=== PATIENT | female | born 1965 | race Caucasian/White ===

== ENCOUNTER 2016-12-30 10:05 | Inpatient (IN) | payer MEDICARE, MEDICAID ==
[~2016-12-30] VITALS: Ht 193 cm; Wt 136.8 kg
[2016-12-30 10:39] LABS: BASOPHILS % (AUTO) 0.3 % (0.0-2.0); EOSINOPHILS % (AUTO) 0.6 % (1.0-6.0); HEMATOCRIT 32.2 % (36-46); HEMOGLOBIN 10.3 g/dL (12.0-16.0); LYMPHOCYTES # (AUTO) 0.8 K/uL (1.0-4.8); LYMPHOCYTES % (AUTO) 11.3 % (22.0-44.0); MEAN CORPUSCULAR HGB CONC 31.8 G/dL (31.0-37.0); MEAN CORPUSCULAR VOLUME 81 fL (80-100); MONOCYTES # (AUTO) 0.6 K/uL (0.1-1.0); MONOCYTES % (AUTO) 9.1 % (2.0-9.0); NEUTROPHILS # (AUTO) 5.4 K/uL (1.8-7.7); NEUTROPHILS % (AUTO) 78.7 % (40.0-70.0); PLATELET COUNT (AUTO) 409 K/uL (150-450); RED BLOOD CELL COUNT(AUTO) 3.95 MIL/uL (4.00-5.20); RED CELL DISTRIBUTION WIDTH 17.7 % (11.5-14.5); WHITE BLOOD COUNT (AUTO) 6.8 K/uL (4.5-11.0)
[2016-12-30] MEDS ORDERED: METF500T4 PO (10:44)
[2016-12-30] MEDS ORDERED: GABA-529 PO (10:45)
[2016-12-30 10:49] LABS: ANION GAP 8 mmol/L (8-16); CALCIUM, TOTAL 8.8 mg/dL (8.8-10.5); CARBON DIOXIDE 28 mmol/L (22-29); CHLORIDE 101 mmol/L (98-107); CREATININE 0.93 mg/dL (0.60-1.30); GLOMERULAR FILTR. RATE CALC > 60 mL/min (>60); POTASSIUM 4.5 mmol/L (3.5-5.1); SODIUM SERUM 137 mmol/L (136-145); UREA NITROGEN, BLOOD 13 mg/dL (7-18)
[2016-12-30 10:55] LABS: ALANINE AMINOTRANSFERASE 19 U/L (12-78); ALBUMIN 2.9 g/dL (3.4-5.0); ASPARTATE AMINOTRANSFERASE 13 U/L (15-37); BILIRUBIN,TOTAL 0.5 mg/dL (0.1-1.0); TOTAL PROTEIN, SERUM 8.3 g/dL (6.4-8.2)
[2016-12-30 10:59] LABS: RBC MORPHOLOGY COMMENT ABNORMAL RBC MORPH
[2016-12-30] MEDS ORDERED: VANCOMYCIN HCL 1 GM/D5% WATER 200 ML IV ONE ×2 (15:00→19:00)
[2016-12-30] MEDS ORDERED: PIPERACILLIN/TAZO 3.375 GM/D5W 50 ML IV ONE (15:00)
[2016-12-30] MEDS ORDERED: MAGNESIUM HYDROXIDE SUSPENSION 30 ML UDCUP PO PRN (15:30)
[2016-12-30] MEDS ORDERED: MORPHINE SULFATE 4 MG/ML SYRINGE IVP PRN (15:30)
[2016-12-30] MEDS ORDERED: ALBUTEROL SULFATE 2.5 MG/0.5 ML NEB SOLUTION NEB PRN (15:30)
[2016-12-30] MEDS ORDERED: HYDROCODONE/ACETAMINOPHEN 5-325 MG TABLET PO PRN ×2 (15:30)
[2016-12-30] MEDS ORDERED: ACETAMINOPHEN 325 MG TABLET PO PRN ×2 (15:30)
[2016-12-30] MEDS ORDERED: ONDANSETRON HCL 4 MG/2 ML VIAL IVP PRN ×2 (15:30)
[2016-12-30] MEDS ORDERED: ZOLPIDEM TARTRATE 5 MG TABLET PO PRN (15:30)
[2016-12-30] MEDS ORDERED: IPRATROPIUM BROMIDE 0.5 MG/2.5 ML NEB SOLUTION NEB PRN (15:30)
[2016-12-30] MEDS ORDERED: DEXTROSE 50%-WATER 25 GM/50 ML SYRINGE IVP PRN (15:30)
[2016-12-30] MEDS ORDERED: BISACODYL 10 MG RECTAL RECTAL SUPPOSITORY PR PRN (15:30)
[2016-12-30] MEDS ORDERED: 0.9% SODIUM CHLORIDE 10 ML SYRINGE IVP PRN (15:30)
[2016-12-30] MEDS: HEPARIN SODIUM,PORCINE 5,000 UNITS/ML VIAL SQ SCH ×3 (15:43→23:29)
[2016-12-30] MEDS ORDERED: VANCOMYCIN HCL 1 GM/D5% WATER 200 ML IV SCH (18:15)
[2016-12-30 19:05] VITALS: BP 124/66
[2016-12-30] MEDS ORDERED: SODIUM CHLORIDE 0.9% 500 ML IV ONE (19:22)
[2016-12-30] MEDS: DOCUSATE SODIUM 100 MG CAPSULE PO SCH (20:41)
[2016-12-30] MEDS: GABAPENTIN 100 MG CAPSULE PO SCH (20:41)
[2016-12-30] MEDS: PIPERACILLIN/TAZO 3.375 GM/D5W 50 ML IV SCH (21:40)
[2016-12-30] MEDS: INSULIN ASPART 100 UNITS/ML SQ PRN (22:04)
[2016-12-30 22:37] LABS: GLUCOSE COMMENT 1 Received Meds; GLUCOSE,POINT OF CARE 208 MG/DL (70-110)
[2016-12-30 23:24] VITALS: BP 100/58
[2016-12-31] MEDS: PIPERACILLIN/TAZO 3.375 GM/D5W 50 ML IV SCH ×4 (03:50→19:38)
[2016-12-31 04:58] VITALS: BP 118/68
[2016-12-31 06:27] LABS: BASOPHILS # (AUTO) 0.03 K/uL (0.00-0.20); BASOPHILS % (AUTO) 0.6 % (0.0-2.0); EOSINOPHILS # (AUTO) 0.13 K/uL (0.00-0.70); EOSINOPHILS % (AUTO) 2.59 % (1.0-6.0); HEMATOCRIT 25.8 % (36-46); HEMOGLOBIN 8.5 g/dL (12.0-16.0); LYMPHOCYTES # (AUTO) 1.3 K/uL (1.0-4.8); LYMPHOCYTES % (AUTO) 25.4 % (22.0-44.0); MEAN CORPUSCULAR HEMOGLOBIN 26.7 pg (26.0-34.0); MEAN CORPUSCULAR HGB CONC 32.8 G/dL (31.0-37.0); MEAN CORPUSCULAR VOLUME 81 fL (80-100); MONOCYTES # (AUTO) 0.6 K/uL (0.1-1.0); MONOCYTES % (AUTO) 12.4 % (2.0-9.0); PLATELET COUNT (AUTO) 301 K/uL (150-450); RED BLOOD CELL COUNT(AUTO) 3.17 MIL/uL (4.00-5.20); RED CELL DISTRIBUTION WIDTH 17.4 % (11.5-14.5)
[2016-12-31] MEDS: INSULIN ASPART 100 UNITS/ML SQ PRN ×4 (06:34→20:18)
[2016-12-31 06:49] LABS: ALANINE AMINOTRANSFERASE 12 U/L (12-78); ALBUMIN 2.3 g/dL (3.4-5.0); ANION GAP 8 mmol/L (8-16); ASPARTATE AMINOTRANSFERASE 10 U/L (15-37); BILIRUBIN,TOTAL 0.2 mg/dL (0.1-1.0); CALCIUM, TOTAL 8.3 mg/dL (8.8-10.5); CARBON DIOXIDE 27 mmol/L (22-29); CHLORIDE 103 mmol/L (98-107); CREATININE 0.75 mg/dL (0.60-1.30); GLOMERULAR FILTR. RATE CALC > 60 mL/min (>60); POTASSIUM 4.5 mmol/L (3.5-5.1); SODIUM SERUM 138 mmol/L (136-145); TOTAL PROTEIN, SERUM 6.6 g/dL (6.4-8.2); UREA NITROGEN, BLOOD 11 mg/dL (7-18)
[2016-12-31 07:17] LABS: GLUCOSE COMMENT 1 Received Meds; GLUCOSE,POINT OF CARE 228 MG/DL (70-110)
[2016-12-31] MEDS: HEPARIN SODIUM,PORCINE 5,000 UNITS/ML VIAL SQ SCH ×3 (08:00→23:52)
[2016-12-31 08:34] VITALS: BP 128/65
[2016-12-31] MEDS: VANCOMYCIN HCL 1.5 GM in DEXTROSE 5%-WATER 250 ML IV SCH ×2 (08:59→19:33)
[2016-12-31] MEDS: DOCUSATE SODIUM 100 MG CAPSULE PO SCH ×2 (09:00→19:40)
[2016-12-31] MEDS: GABAPENTIN 100 MG CAPSULE PO SCH ×2 (09:00→19:33)
[2016-12-31] MEDS: PANTOPRAZOLE SODIUM 40 MG/VIAL IVP SCH (09:00)
[2016-12-31 12:20] VITALS: BP 126/76
[2016-12-31 12:22] LABS: GLUCOSE COMMENT 1 Received Meds; GLUCOSE,POINT OF CARE 185 MG/DL (70-110)
[2016-12-31 15:41] VITALS: BP 124/62
[2016-12-31 17:47] LABS: GLUCOSE COMMENT 1 Received Meds; GLUCOSE,POINT OF CARE 203 MG/DL (70-110)
[2016-12-31 19:12] VITALS: BP 115/55
[2016-12-31] MEDS: SPIRONOLACTONE 50 MG TABLET PO SCH (19:33)
[2016-12-31 23:46] LABS: GLUCOSE,POINT OF CARE 172 MG/DL (70-110)
[2017-01-01 03:07] VITALS: BP 124/52
[2017-01-01] MEDS: PIPERACILLIN/TAZO 3.375 GM/D5W 50 ML IV SCH ×4 (04:23→20:05)
[2017-01-01] MEDS: INSULIN ASPART 100 UNITS/ML SQ PRN ×4 (05:36→20:11)
[2017-01-01 06:01] LABS: GLUCOSE,POINT OF CARE 194 MG/DL (70-110)
[2017-01-01 07:06] LABS: ANION GAP 9 mmol/L (8-16); CALCIUM, TOTAL 8.5 mg/dL (8.8-10.5); CARBON DIOXIDE 25 mmol/L (22-29); CHLORIDE 103 mmol/L (98-107); CREATININE 0.77 mg/dL (0.60-1.30); GLOMERULAR FILTR. RATE CALC > 60 mL/min (>60); POTASSIUM 4.2 mmol/L (3.5-5.1); SODIUM SERUM 137 mmol/L (136-145); UREA NITROGEN, BLOOD 10 mg/dL (7-18)
[2017-01-01] MEDS: VANCOMYCIN HCL 1.5 GM in DEXTROSE 5%-WATER 250 ML IV SCH ×2 (07:41→20:11)
[2017-01-01 08:00] VITALS: BP 134/78
[2017-01-01] MEDS: PANTOPRAZOLE SODIUM 40 MG/VIAL IVP SCH (08:17)
[2017-01-01] MEDS: ESTRADIOL 1 MG TABLET PO SCH (09:16)
[2017-01-01] MEDS: SPIRONOLACTONE 50 MG TABLET PO SCH ×2 (09:16→20:05)
[2017-01-01] MEDS: HEPARIN SODIUM,PORCINE 5,000 UNITS/ML VIAL SQ SCH ×2 (09:16→17:36)
[2017-01-01] MEDS: DOCUSATE SODIUM 100 MG CAPSULE PO SCH ×2 (09:16→20:05)
[2017-01-01] MEDS: GABAPENTIN 100 MG CAPSULE PO SCH ×2 (09:17→20:05)
[2017-01-01 11:37] LABS: GLUCOSE,POINT OF CARE 193 MG/DL (70-110)
[2017-01-01 12:03] VITALS: BP 131/77
[2017-01-01] MEDS: SILVER SULFADIAZINE 1% 25 GM CREAM TP SCH (17:36)
[2017-01-01] MEDS: NYSTATIN/TRIAMCINOLONE 15 GM CREAM TP SCH (17:36)
[2017-01-01 17:47] LABS: GLUCOSE,POINT OF CARE 264 MG/DL (70-110)
[2017-01-01 20:15] VITALS: BP 128/70
[2017-01-01 20:42] LABS: GLUCOSE COMMENT 1 Received Meds; GLUCOSE,POINT OF CARE 225 MG/DL (70-110)
[2017-01-01 23:23] VITALS: BP 135/76
[2017-01-02] VITALS (7 sets, daily range): BP systolic 120–136; BP diastolic 64–80
[2017-01-02] MEDS: HEPARIN SODIUM,PORCINE 5,000 UNITS/ML VIAL SQ SCH ×4 (00:05→23:10)
[2017-01-02] MEDS ORDERED: SODIUM CHLORIDE 0.9% 500 ML IV ONE (00:28)
[2017-01-02] MEDS: PIPERACILLIN/TAZO 3.375 GM/D5W 50 ML IV SCH ×4 (03:29→21:30)
[2017-01-02] MEDS: INSULIN ASPART 100 UNITS/ML SQ PRN ×4 (05:20→21:09)
[2017-01-02 06:17] LABS: GLUCOSE COMMENT 1 Received Meds; GLUCOSE,POINT OF CARE 206 MG/DL (70-110)
[2017-01-02 06:21] LABS: ANION GAP 7 mmol/L (8-16); CALCIUM, TOTAL 8.4 mg/dL (8.8-10.5); CARBON DIOXIDE 28 mmol/L (22-29); CHLORIDE 101 mmol/L (98-107); CREATININE 0.72 mg/dL (0.60-1.30); GLOMERULAR FILTR. RATE CALC > 60 mL/min (>60); POTASSIUM 4.2 mmol/L (3.5-5.1); SODIUM SERUM 136 mmol/L (136-145); UREA NITROGEN, BLOOD 9 mg/dL (7-18)
[2017-01-02] MEDS: PANTOPRAZOLE SODIUM 40 MG/VIAL IVP SCH (08:30)
[2017-01-02] MEDS: SPIRONOLACTONE 50 MG TABLET PO SCH ×2 (09:20→19:46)
[2017-01-02] MEDS: GABAPENTIN 100 MG CAPSULE PO SCH ×2 (09:21→19:45)
[2017-01-02] MEDS: SERTRALINE HCL 50 MG TABLET PO SCH (09:21)
[2017-01-02] MEDS: DOCUSATE SODIUM 100 MG CAPSULE PO SCH ×2 (09:21→19:45)
[2017-01-02] MEDS: ESTRADIOL 1 MG TABLET PO SCH (09:21)
[2017-01-02] MEDS: SILVER SULFADIAZINE 1% 25 GM CREAM TP SCH (09:22)
[2017-01-02] MEDS: NYSTATIN/TRIAMCINOLONE 15 GM CREAM TP SCH (09:22)
[2017-01-02] MEDS: VANCOMYCIN HCL 1.5 GM in DEXTROSE 5%-WATER 250 ML IV SCH ×2 (09:23→19:46)
[2017-01-02 12:36] LABS: GLUCOSE,POINT OF CARE 206 MG/DL (70-110)
[2017-01-02 19:52] LABS: GLUCOSE,POINT OF CARE 198 MG/DL (70-110)
[2017-01-02 20:30] LABS: BASOPHILS % (AUTO) 0.7 % (0.0-2.0); EOSINOPHILS % (AUTO) 1.9 % (1.0-6.0); HEMATOCRIT 28.6 % (36-46); HEMOGLOBIN 9.2 g/dL (12.0-16.0); LYMPHOCYTES # (AUTO) 1.1 K/uL (1.0-4.8); LYMPHOCYTES % (AUTO) 17.3 % (22.0-44.0); MEAN CORPUSCULAR HEMOGLOBIN 26.4 pg (26.0-34.0); MEAN CORPUSCULAR HGB CONC 32.3 G/dL (31.0-37.0); MEAN CORPUSCULAR VOLUME 82 fL (80-100); MONOCYTES # (AUTO) 0.6 K/uL (0.1-1.0); MONOCYTES % (AUTO) 8.9 % (2.0-9.0); NEUTROPHILS # (AUTO) 4.7 K/uL (1.8-7.7); NEUTROPHILS % (AUTO) 71.2 % (40.0-70.0); PLATELET COUNT (AUTO) 347 K/uL (150-450); RED CELL DISTRIBUTION WIDTH 16.8 % (11.5-14.5); WHITE BLOOD COUNT (AUTO) 6.5 K/uL (4.5-11.0)
[2017-01-02 20:40] LABS: ANION GAP 9 mmol/L (8-16); CALCIUM, TOTAL 8.8 mg/dL (8.8-10.5); CARBON DIOXIDE 27 mmol/L (22-29); CHLORIDE 100 mmol/L (98-107); CREATININE 0.76 mg/dL (0.60-1.30); GLOMERULAR FILTR. RATE CALC > 60 mL/min (>60); POTASSIUM 4.3 mmol/L (3.5-5.1); SODIUM SERUM 136 mmol/L (136-145); UREA NITROGEN, BLOOD 14 mg/dL (7-18)
[2017-01-02 20:47] LABS: ALANINE AMINOTRANSFERASE 16 U/L (12-78); ALBUMIN 2.6 g/dL (3.4-5.0); ASPARTATE AMINOTRANSFERASE 11 U/L (15-37); BILIRUBIN,TOTAL 0.3 mg/dL (0.1-1.0); TOTAL PROTEIN, SERUM 7.7 g/dL (6.4-8.2)
[2017-01-02 21:36] LABS: GLUCOSE,POINT OF CARE 175 MG/DL (70-110)
[2017-01-03 05:03] VITALS: BP 134/68
[2017-01-03] MEDS: INSULIN ASPART 100 UNITS/ML SQ PRN (05:39)
[2017-01-03] MEDS: PIPERACILLIN/TAZO 3.375 GM/D5W 50 ML IV SCH ×2 (05:58→10:37)
[2017-01-03 06:02] LABS: GLUCOSE,POINT OF CARE 158 MG/DL (70-110)
[2017-01-03] MEDS: HEPARIN SODIUM,PORCINE 5,000 UNITS/ML VIAL SQ SCH (08:00)
[2017-01-03 08:06] LABS: ANION GAP 8 mmol/L (8-16); CALCIUM, TOTAL 8.6 mg/dL (8.8-10.5); CARBON DIOXIDE 28 mmol/L (22-29); CHLORIDE 101 mmol/L (98-107); CREATININE 0.69 mg/dL (0.60-1.30); GLOMERULAR FILTR. RATE CALC > 60 mL/min (>60); SODIUM SERUM 137 mmol/L (136-145); UREA NITROGEN, BLOOD 10 mg/dL (7-18)
[2017-01-03] MEDS: PANTOPRAZOLE SODIUM 40 MG/VIAL IVP SCH (08:08)
[2017-01-03] MEDS: VANCOMYCIN HCL 1.5 GM in DEXTROSE 5%-WATER 250 ML IV SCH (08:08)
[2017-01-03 08:17] VITALS: BP 134/78
[2017-01-03] MEDS: ESTRADIOL 1 MG TABLET PO SCH (08:43)
[2017-01-03] MEDS: GABAPENTIN 100 MG CAPSULE PO SCH (08:43)
[2017-01-03] MEDS: DOCUSATE SODIUM 100 MG CAPSULE PO SCH (08:43)
[2017-01-03] MEDS: SERTRALINE HCL 50 MG TABLET PO SCH (08:43)
[2017-01-03] MEDS: SPIRONOLACTONE 50 MG TABLET PO SCH (08:43)
[2017-01-03] MEDS: NYSTATIN/TRIAMCINOLONE 15 GM CREAM TP SCH (08:44)
[2017-01-03] MEDS: SILVER SULFADIAZINE 1% 25 GM CREAM TP SCH (08:44)
[2017-01-03 11:09] VITALS: BP 111/71
[2017-01-03 15:16] VITALS: BP 123/74
== END 2017-01-03 16:50 | disposition home or self-care (01) | DRG 603 ==
LOC: EMS 10:08 → 6N 16:10
PROVIDERS: ADMIT Hospitalist; ATTEND Hospitalist
DX: L03.116 Cellulitis of left lower limb (principal); R45.851 Suicidal ideations; F33.2 Major depressive disorder, recurrent severe without psychotic features; L03.115 Cellulitis of right lower limb; G80.9 Cerebral palsy, unspecified; F17.210 Nicotine dependence, cigarettes, uncomplicated; E11.42 Type 2 diabetes mellitus with diabetic polyneuropathy; E66.9 Obesity, unspecified; B95.62 Methicillin resistant Staphylococcus aureus infection as the cause of diseases classified elsewhere; D64.9 Anemia, unspecified; F64.9 Gender identity disorder, unspecified; S80.812A Abrasion, left lower leg, initial encounter; S80.811A Abrasion, right lower leg, initial encounter; Z53.29 Procedure and treatment not carried out because of patient's decision for other reasons; S90.412A Abrasion, left great toe, initial encounter; X58.XXXA Exposure to other specified factors, initial encounter; E11.622 Type 2 diabetes mellitus with other skin ulcer; L98.499 Non-pressure chronic ulcer of skin of other sites with unspecified severity; Z91.14 Patient's other noncompliance with medication regimen; Z79.899 Other long term (current) drug therapy; Z79.4 Long term (current) use of insulin; Z68.36 Body mass index [BMI] 36.0-36.9, adult; Y93.89 Activity, other specified; Y92.89 Other specified places as the place of occurrence of the external cause; Y99.8 Other external cause status
CPT/HCPCS: 82962; 83605; 87040; 87070; 87147; 87205; 93971; 96365; 96366; 96368; 99285; C9113; G0480; J1644; J2543; J3370; J7040; J7060

== ENCOUNTER 2017-07-03 12:17 | Inpatient (IN) | payer MEDICARE, MEDICAID ==
[~2017-07-03] VITALS: Ht 182.9 cm; Wt 117.5 kg
[~2017-07-03 12:17] MED LIST: CEPH500 PO; CITA20TA9 PO; ESTR-95 PO; GABA-529 PO; MUPI1OIN4 NS; SPIR50 PO; SULF1TAB42 PO
[2017-07-03] MEDS ORDERED: METF500T4 PO (12:39)
[2017-07-03] MEDS ORDERED: LORazepam 2 MG TABLET PO ONE (14:30)
[2017-07-03] MEDS: HALOPERIDOL 5 MG TABLET PO ONE ×2 (14:37→14:38)
[2017-07-03 14:39] LABS: BASOPHILS % (AUTO) 0.5 % (0.0-2.0); EOSINOPHILS % (AUTO) 2.4 % (1.0-6.0); HEMATOCRIT 29.4 % (36-46); LYMPHOCYTES % (AUTO) 15.7 % (22.0-44.0); MEAN CORPUSCULAR HEMOGLOBIN 29.3 pg (26.0-34.0); MEAN CORPUSCULAR VOLUME 86 fL (80-100); MONOCYTES # (AUTO) 0.6 K/uL (0.1-1.0); MONOCYTES % (AUTO) 9.6 % (2.0-9.0); NEUTROPHILS # (AUTO) 4.6 K/uL (1.8-7.7); NEUTROPHILS % (AUTO) 71.8 % (40.0-70.0); PLATELET COUNT (AUTO) 327 K/uL (150-450); RED BLOOD CELL COUNT(AUTO) 3.41 MIL/uL (4.00-5.20); RED CELL DISTRIBUTION WIDTH 15.4 % (11.5-14.5)
[2017-07-03] MEDS ORDERED: LORazepam 2 MG TABLET PO PRN (14:45)
[2017-07-03] MEDS ORDERED: HALOPERIDOL 5 MG TABLET PO PRN (14:45)
[2017-07-03] MEDS ORDERED: ZOLPIDEM TARTRATE 10 MG TABLET PO PRN (14:45)
[2017-07-03 14:52] LABS: ANION GAP 9 mmol/L (8-16); CARBON DIOXIDE 25 mmol/L (22-29); CHLORIDE 102 mmol/L (98-107); CREATININE 1.29 mg/dL (0.60-1.30); GLOMERULAR FILTR. RATE CALC 44 mL/min (>60); GLUCOSE,RANDOM 182 mg/dL (70-110); POTASSIUM 4.9 mmol/L (3.5-5.1); SODIUM SERUM 136 mmol/L (136-145); UREA NITROGEN, BLOOD 22 mg/dL (7-18)
[2017-07-03 14:58] LABS: ALANINE AMINOTRANSFERASE 26 U/L (12-78); ALBUMIN 3.2 g/dL (3.4-5.0); ALKALINE PHOSPHATASE 75 U/L (46-116); ASPARTATE AMINOTRANSFERASE 15 U/L (15-37); BILIRUBIN,TOTAL 0.2 mg/dL (0.1-1.0)
[2017-07-03 15:10] LABS: TOTAL PROTEIN, SERUM 8.1 g/dL (6.4-8.2)
[2017-07-03 15:53] LABS: AMPHET/METH SCREEN,URINE NEGATIVE (NEGATIVE); BARBITURATE SCREEN, URINE NEGATIVE (NEGATIVE); BENZODIAZEPINES SCREEN,URINE NEGATIVE (NEGATIVE); CANNABINOID SCREEN,URINE NEGATIVE (NEGATIVE); COCAINE SCREEN,URINE NEGATIVE (NEGATIVE); METHADONE SCREEN, URINE NEGATIVE (NEGATIVE); OPIATE SCREEN,URINE NEGATIVE (NEGATIVE)
[2017-07-03 15:55] LABS: PHENCYCLIDINE SCREEN,URINE NEGATIVE (NEGATIVE)
[2017-07-03 17:37] LABS: GLUCOMETER DEV NAME(LOC) 3EI B; GLUCOSE,POINT OF CARE 169 MG/DL (70-110)
[2017-07-03] MEDS ORDERED: PERMETHRIN 5% 60 GM CREAM TP ONE ×2 (20:15→21:00)
[2017-07-03 20:51] VITALS: BP 144/87
[2017-07-03] MEDS: CEPHALEXIN MONOHYDRATE 500 MG CAPSULE PO SCH (20:58)
[2017-07-03 21:03] LABS: GLUCOMETER DEV NAME(LOC) 3EX 1; GLUCOSE,POINT OF CARE 163 MG/DL (70-110)
[2017-07-04 05:37] LABS: GLUCOMETER DEV NAME(LOC) 3EI B; GLUCOSE,POINT OF CARE 182 MG/DL (70-110)
[2017-07-04 06:11] VITALS: BP 121/72
[2017-07-04 09:00] VITALS: BP 146/88
[2017-07-04] MEDS ORDERED: GABAPENTIN 100 MG CAPSULE PO SCH (09:00)
[2017-07-04] MEDS: SULFAMETHOX/TRIMETH DS 800-160 MG/TABLET PO SCH ×2 (09:22→16:12)
[2017-07-04] MEDS: CEPHALEXIN MONOHYDRATE 500 MG CAPSULE PO SCH ×4 (09:22→20:59)
[2017-07-04] MEDS: ESTRADIOL 1 MG TABLET PO SCH (09:22)
[2017-07-04] MEDS: SPIRONOLACTONE 50 MG TABLET PO SCH ×2 (09:23→16:12)
[2017-07-04] MEDS: CITALOPRAM HYDROBROMIDE 20 MG TABLET PO SCH (11:13)
[2017-07-04 11:38] LABS: GLUCOMETER DEV NAME(LOC) 3EX 1; GLUCOSE,POINT OF CARE 125 MG/DL (70-110)
[2017-07-04] MEDS ORDERED: MINERAL OIL/PETROLATUM 120 GM CREAM TP SCH (13:30)
[2017-07-04] MEDS: GABAPENTIN 100 MG CAPSULE PO SCH ×2 (14:01→16:12)
[2017-07-04 16:23] VITALS: BP 153/100
[2017-07-04] MEDS ORDERED: ACETAMINOPHEN 325 MG TABLET PO PRN (16:30)
[2017-07-04] MEDS ORDERED: IBUPROFEN 400 MG TABLET PO PRN (16:30)
[2017-07-04 16:37] LABS: GLUCOMETER DEV NAME(LOC) 3EX 1; GLUCOSE,POINT OF CARE 157 MG/DL (70-110)
[2017-07-04 19:07] VITALS: BP 138/76
[2017-07-04] MEDS: LISINOPRIL 10 MG TABLET PO SCH (19:07)
[2017-07-04 21:17] LABS: GLUCOMETER DEV NAME(LOC) 3EX 1; GLUCOSE,POINT OF CARE 139 MG/DL (70-110)
[2017-07-05 04:52] VITALS: BP 131/66
[2017-07-05 06:56] LABS: CHOL/HDL RATIO 4.4 (3.9-5.7)
[2017-07-05] MEDS: SPIRONOLACTONE 50 MG TABLET PO SCH ×2 (08:57→16:37)
[2017-07-05] MEDS: CEPHALEXIN MONOHYDRATE 500 MG CAPSULE PO SCH ×4 (08:58→20:47)
[2017-07-05] MEDS: ESTRADIOL 1 MG TABLET PO SCH (08:58)
[2017-07-05] MEDS: GABAPENTIN 100 MG CAPSULE PO SCH ×3 (08:58→16:37)
[2017-07-05] MEDS: SULFAMETHOX/TRIMETH DS 800-160 MG/TABLET PO SCH ×2 (08:58→16:38)
[2017-07-05] MEDS: LISINOPRIL 10 MG TABLET PO SCH (09:00)
[2017-07-05] MEDS: CITALOPRAM HYDROBROMIDE 20 MG TABLET PO SCH (10:01)
[2017-07-05 11:34] LABS: GLUCOMETER DEV NAME(LOC) 3EX 1; GLUCOSE,POINT OF CARE 135 MG/DL (70-110)
[2017-07-05] MEDS: MUPIROCIN CALCIUM 2% 22 GM OINTMENT NASAL SCH (16:38)
[2017-07-05 16:44] LABS: GLUCOMETER DEV NAME(LOC) 3EX 1; GLUCOSE,POINT OF CARE 132 MG/DL (70-110)
[2017-07-05 20:44] VITALS: BP 135/71
[2017-07-05 21:18] LABS: GLUCOMETER DEV NAME(LOC) 3EX 1; GLUCOSE,POINT OF CARE 170 MG/DL (70-110)
[2017-07-06 05:39] LABS: GLUCOMETER DEV NAME(LOC) 3EI B; GLUCOSE,POINT OF CARE 138 MG/DL (70-110)
[2017-07-06] MEDS: MetFORMIN HCL 500 MG TABLET PO SCH (06:52)
[2017-07-06] MEDS: SPIRONOLACTONE 50 MG TABLET PO SCH ×2 (08:21→16:51)
[2017-07-06] MEDS: ESTRADIOL 1 MG TABLET PO SCH (08:21)
[2017-07-06] MEDS: SULFAMETHOX/TRIMETH DS 800-160 MG/TABLET PO SCH ×2 (08:21→16:51)
[2017-07-06] MEDS: CITALOPRAM HYDROBROMIDE 20 MG TABLET PO SCH (08:21)
[2017-07-06] MEDS: LISINOPRIL 10 MG TABLET PO SCH (08:22)
[2017-07-06] MEDS: CEPHALEXIN MONOHYDRATE 500 MG CAPSULE PO SCH ×4 (08:22→20:16)
[2017-07-06] MEDS: GABAPENTIN 100 MG CAPSULE PO SCH ×3 (08:22→16:51)
[2017-07-06] MEDS: MUPIROCIN CALCIUM 2% 22 GM OINTMENT NASAL SCH ×2 (09:00→16:50)
[2017-07-06 11:28] LABS: GLUCOMETER DEV NAME(LOC) 3EX 1; GLUCOSE,POINT OF CARE 156 MG/DL (70-110)
[2017-07-06 16:30] VITALS: BP 100/66
[2017-07-06 17:42] LABS: GLUCOMETER DEV NAME(LOC) 3EX 1; GLUCOSE,POINT OF CARE 155 MG/DL (70-110)
[2017-07-06 20:23] LABS: GLUCOMETER DEV NAME(LOC) 3EX 1; GLUCOSE,POINT OF CARE 142 MG/DL (70-110)
[2017-07-07 03:41] VITALS: BP 101/59
[2017-07-07 06:28] LABS: GLUCOMETER DEV NAME(LOC) 3EI B; GLUCOSE,POINT OF CARE 129 MG/DL (70-110)
[2017-07-07] MEDS: MetFORMIN HCL 500 MG TABLET PO SCH (07:09)
[2017-07-07 07:31] LABS: CALCIUM, TOTAL 8.2 mg/dL (8.8-10.5); CREATININE 1.72 mg/dL (0.60-1.30); POTASSIUM 5.3 mmol/L (3.5-5.1)
[2017-07-07 08:12] VITALS: BP 112/60
[2017-07-07] MEDS: MUPIROCIN CALCIUM 2% 22 GM OINTMENT NASAL SCH ×2 (08:51→17:29)
[2017-07-07] MEDS: LISINOPRIL 10 MG TABLET PO SCH (08:52)
[2017-07-07] MEDS: SPIRONOLACTONE 50 MG TABLET PO SCH ×2 (08:52→17:29)
[2017-07-07] MEDS: GABAPENTIN 100 MG CAPSULE PO SCH ×3 (08:52→17:29)
[2017-07-07] MEDS: SULFAMETHOX/TRIMETH DS 800-160 MG/TABLET PO SCH ×2 (08:52→17:29)
[2017-07-07] MEDS: CEPHALEXIN MONOHYDRATE 500 MG CAPSULE PO SCH ×4 (08:52→20:46)
[2017-07-07] MEDS: CITALOPRAM HYDROBROMIDE 20 MG TABLET PO SCH (08:53)
[2017-07-07] MEDS: ESTRADIOL 1 MG TABLET PO SCH (08:53)
[2017-07-07 11:38] LABS: GLUCOMETER DEV NAME(LOC) 3EX 1; GLUCOSE,POINT OF CARE 136 MG/DL (70-110)
[2017-07-07] MEDS: LOPERAMIDE HCL 2 MG CAPSULE PO PRN ×2 (12:35→17:29)
[2017-07-07] MEDS ORDERED: MINERAL OIL/PETROLATUM 120 GM CREAM TP PRN (13:15)
[2017-07-07 17:42] LABS: GLUCOMETER DEV NAME(LOC) 3EX 1; GLUCOSE,POINT OF CARE 134 MG/DL (70-110)
[2017-07-07 17:45] VITALS: BP 153/70
[2017-07-07 20:57] LABS: GLUCOMETER DEV NAME(LOC) 3EX 1; GLUCOSE,POINT OF CARE 126 MG/DL (70-110)
[2017-07-08 05:48] LABS: GLUCOMETER DEV NAME(LOC) 3EI B; GLUCOSE,POINT OF CARE 105 MG/DL (70-110)
[2017-07-08] MEDS: MetFORMIN HCL 500 MG TABLET PO SCH (06:59)
[2017-07-08 07:30] LABS: BASOPHILS % (AUTO) 0.7 % (0.0-2.0); EOSINOPHILS % (AUTO) 2.6 % (1.0-6.0); HEMATOCRIT 24.7 % (36-46); HEMOGLOBIN 8.4 g/dL (12.0-16.0); LYMPHOCYTES # (AUTO) 1.2 K/uL (1.0-4.8); LYMPHOCYTES % (AUTO) 15.6 % (22.0-44.0); MEAN CORPUSCULAR HEMOGLOBIN 29.6 pg (26.0-34.0); MEAN CORPUSCULAR VOLUME 87 fL (80-100); MONOCYTES # (AUTO) 0.8 K/uL (0.1-1.0); NEUTROPHILS # (AUTO) 5.7 K/uL (1.8-7.7); NEUTROPHILS % (AUTO) 71.1 % (40.0-70.0); PLATELET COUNT (AUTO) 269 K/uL (150-450); RED BLOOD CELL COUNT(AUTO) 2.84 MIL/uL (4.00-5.20); RED CELL DISTRIBUTION WIDTH 15.3 % (11.5-14.5)
[2017-07-08 09:00] VITALS: BP 102/61
[2017-07-08] MEDS ORDERED: MINERAL OIL/PETROLATUM 120 GM CREAM TP SCH (09:00)
[2017-07-08] MEDS: MUPIROCIN CALCIUM 2% 22 GM OINTMENT NASAL SCH ×2 (09:36→17:31)
[2017-07-08] MEDS: SPIRONOLACTONE 50 MG TABLET PO SCH ×2 (09:37→17:31)
[2017-07-08] MEDS: CEPHALEXIN MONOHYDRATE 500 MG CAPSULE PO SCH ×4 (09:37→20:12)
[2017-07-08] MEDS: LISINOPRIL 10 MG TABLET PO SCH (09:37)
[2017-07-08] MEDS: ESTRADIOL 1 MG TABLET PO SCH (09:38)
[2017-07-08] MEDS: CITALOPRAM HYDROBROMIDE 20 MG TABLET PO SCH (09:39)
[2017-07-08] MEDS: SULFAMETHOX/TRIMETH DS 800-160 MG/TABLET PO SCH ×2 (09:39→17:31)
[2017-07-08] MEDS: GABAPENTIN 100 MG CAPSULE PO SCH ×3 (09:40→17:31)
[2017-07-08 11:48] LABS: GLUCOMETER DEV NAME(LOC) 3EX 1; GLUCOSE,POINT OF CARE 108 MG/DL (70-110)
[2017-07-08 17:42] LABS: GLUCOMETER DEV NAME(LOC) 3EX 1; GLUCOSE,POINT OF CARE 87 MG/DL (70-110)
[2017-07-08] MEDS ORDERED: ALBUTEROL SULFATE HFA 90 MCG/PUFF 8 GM INHALER IH SCH (18:00)
[2017-07-08] MEDS ORDERED: SODIUM POLYSTYRENE SULFONATE 15 GM/60 ML SUSPENSION BOTTLE PO ONE (18:00)
[2017-07-08] MEDS ORDERED: SODIUM CHLORIDE 0.9% 1,000 ML IV ONE (19:00)
[2017-07-08 20:43] LABS: GLUCOMETER DEV NAME(LOC) 3EX 1; GLUCOSE,POINT OF CARE 113 MG/DL (70-110)
== END 2017-07-08 20:45 | disposition short-term general hospital (02) | DRG 885 ==
LOC: EMS 12:19 → 3EX 15:38
DX: F31.31 Bipolar disorder, current episode depressed, mild (principal); E11.42 Type 2 diabetes mellitus with diabetic polyneuropathy; E11.621 Type 2 diabetes mellitus with foot ulcer; L03.115 Cellulitis of right lower limb; E87.5 Hyperkalemia; R45.851 Suicidal ideations; L03.116 Cellulitis of left lower limb; F25.1 Schizoaffective disorder, depressive type; L97.529 Non-pressure chronic ulcer of other part of left foot with unspecified severity; F17.200 Nicotine dependence, unspecified, uncomplicated; F64.9 Gender identity disorder, unspecified; I10 Essential (primary) hypertension; Z59.9 Problem related to housing and economic circumstances, unspecified; Z63.8 Other specified problems related to primary support group; Z91.5 Personal history of self-harm; Z91.14 Patient's other noncompliance with medication regimen; Z79.84 Long term (current) use of oral hypoglycemic drugs; Z79.899 Other long term (current) drug therapy
CPT/HCPCS: 82962; 83036; 84132; 87070; 87081; 87205; 93005; 97161; 97165; 97535; 99285; G0480; J3535

== ENCOUNTER 2017-07-08 20:50 | Inpatient (IN) | payer MEDICARE, MEDICAID ==
[~2017-07-08 20:50] MED LIST changes: -CEPH500 PO; +METF500T4 PO; -MUPI1OIN4 NS; -SULF1TAB42 PO
[2017-07-08 22:09] VITALS: BP 108/57
[2017-07-08] MEDS ORDERED: SODIUM POLYSTYRENE SULFONATE 15 GM/60 ML SUSPENSION BOTTLE PO ONE (22:30)
[2017-07-08] MEDS ORDERED: SODIUM CHLORIDE 0.9% 1,000 ML IV SCH (23:15)
[2017-07-09] MEDS ORDERED: ALBUTEROL SULFATE 2.5 MG/0.5 ML NEB SOLUTION NEB ONE ×3 (00:45→21:00)
[2017-07-09] MEDS ORDERED: IBUPROFEN 400 MG TABLET PO PRN (01:00)
[2017-07-09] MEDS ORDERED: MINERAL OIL/PETROLATUM 120 GM CREAM TP PRN (01:00)
[2017-07-09] MEDS ORDERED: ACETAMINOPHEN 325 MG TABLET PO PRN ×2 (01:00→10:45)
[2017-07-09] MEDS ORDERED: LOPERAMIDE HCL 2 MG CAPSULE PO PRN (01:00)
[2017-07-09] MEDS ORDERED: ALBUTEROL SULFATE HFA 90 MCG/PUFF 8 GM INHALER IH SCH ×2 (01:00)
[2017-07-09 01:02] VITALS: BP 114/56
[2017-07-09] MEDS ORDERED: 0.9% SODIUM CHLORIDE 5 ML NEB SOLUTION NEB ONE ×3 (01:04→22:33)
[2017-07-09] MEDS ORDERED: ALBUTEROL SULFATE HFA 90 MCG/PUFF 8 GM INHALER IH PRN ×2 (01:45→07:00)
[2017-07-09 02:01] LABS: CALCIUM, TOTAL 8.5 mg/dL (8.8-10.5); CREATININE 1.64 mg/dL (0.60-1.30)
[2017-07-09 02:02] LABS: POTASSIUM 6.2 mmol/L (3.5-5.1)
[2017-07-09] MEDS ORDERED: DEXTROSE 50%-WATER 25 GM/50 ML SYRINGE IVP ONE ×4 (02:15→23:30)
[2017-07-09] MEDS ORDERED: INSULIN REGULAR, HUMAN 100 UNITS/ML IVP ONE ×3 (02:15→23:30)
[2017-07-09] MEDS ORDERED: INFLUENZA VIRUS VACCINE QVS 2017-18 (3YR+)/PF 60 MCG/0.5 ML SYRINGE IM ONE (04:45)
[2017-07-09 04:49] LABS: C.DIFF GDH ANTIGEN, Stool Positive (Negative); C.DIFF TOXINS A&B, Stool Negative (Negative)
[2017-07-09 06:09] LABS: GLUCOMETER DEV NAME(LOC) 5S 2N; GLUCOSE,POINT OF CARE 111 MG/DL (70-110)
[2017-07-09] MEDS ORDERED: PNEUMOCOCCAL VACCINE POLYVALENT 0.5 ML VIAL [PPSV23] IM ONE (06:15)
[2017-07-09 06:30] VITALS: BP 102/65
[2017-07-09] MEDS ORDERED: MetFORMIN HCL 500 MG TABLET PO SCH (08:00)
[2017-07-09 08:04] LABS: ALBUMIN 2.9 g/dL (3.4-5.0); BILIRUBIN,TOTAL 0.2 mg/dL (0.1-1.0); CALCIUM, TOTAL 8.4 mg/dL (8.8-10.5); CREATININE 1.64 mg/dL (0.60-1.30); POTASSIUM 5.8 mmol/L (3.5-5.1); TOTAL PROTEIN, SERUM 7.4 g/dL (6.4-8.2)
[2017-07-09] MEDS: MUPIROCIN CALCIUM 2% 22 GM OINTMENT NASAL SCH ×2 (08:26→21:00)
[2017-07-09] MEDS: ESTRADIOL 1 MG TABLET PO SCH (08:26)
[2017-07-09] MEDS: MINERAL OIL/PETROLATUM 120 GM CREAM TP SCH (08:27)
[2017-07-09] MEDS: CEPHALEXIN MONOHYDRATE 500 MG CAPSULE PO SCH ×4 (08:27→22:30)
[2017-07-09] MEDS: GABAPENTIN 100 MG CAPSULE PO SCH ×3 (08:27→22:30)
[2017-07-09] MEDS ORDERED: LISINOPRIL 10 MG TABLET PO SCH (09:00)
[2017-07-09] MEDS ORDERED: SODIUM POLYSTYRENE SULFONATE 15 GM/60 ML SUSPENSION BOTTLE PO ONE ×2 (10:45→19:15)
[2017-07-09] MEDS ORDERED: SODIUM CHLORIDE 0.9% 1,000 ML IV ONE (10:45)
[2017-07-09] MEDS ORDERED: MAGNESIUM HYDROXIDE SUSPENSION 30 ML UDCUP PO PRN (10:45)
[2017-07-09] MEDS ORDERED: ONDANSETRON HCL 4 MG/2 ML VIAL IVP PRN (10:45)
[2017-07-09] MEDS ORDERED: HYDROCODONE/ACETAMINOPHEN 5-325 MG TABLET PO PRN (10:45)
[2017-07-09] MEDS ORDERED: BISACODYL 10 MG RECTAL RECTAL SUPPOSITORY PR PRN (10:45)
[2017-07-09] MEDS ORDERED: MORPHINE SULFATE 2 MG/ML SYRINGE IVP PRN (10:45)
[2017-07-09] MEDS ORDERED: ZOLPIDEM TARTRATE 5 MG TABLET PO PRN (10:45)
[2017-07-09] MEDS ORDERED: DEXTROSE 50%-WATER 25 GM/50 ML SYRINGE IVP PRN (11:00)
[2017-07-09 11:45] VITALS: BP 90/67
[2017-07-09 14:28] LABS: GLUCOMETER DEV NAME(LOC) 5S 2N; GLUCOSE,POINT OF CARE 128 MG/DL (70-110)
[2017-07-09] MEDS: HEPARIN SODIUM,PORCINE 5,000 UNITS/ML VIAL SQ SCH (16:00)
[2017-07-09 16:06] VITALS: BP 112/58
[2017-07-09 18:49] LABS: ANION GAP 7 mmol/L (8-16); CALCIUM, TOTAL 8.6 mg/dL (8.8-10.5); CARBON DIOXIDE 20 mmol/L (22-29); CHLORIDE 106 mmol/L (98-107); CREATININE 1.51 mg/dL (0.60-1.30); GLOMERULAR FILTR. RATE CALC 36 mL/min (>60); GLUCOSE,RANDOM 101 mg/dL (70-110); SODIUM SERUM 133 mmol/L (136-145); UREA NITROGEN, BLOOD 37 mg/dL (7-18)
[2017-07-09 18:55] LABS: POTASSIUM 6.7 mmol/L (3.5-5.1)
[2017-07-09] MEDS ORDERED: CALCIUM GLUCONATE 100 MG/ML 10 ML IVP ONE ×2 (19:15→23:30)
[2017-07-09 19:42] VITALS: BP 108/55
[2017-07-09] MEDS: SODIUM BICARBONATE 75 MEQ in SODIUM CHLORIDE 0.45% 1,000 ML IV SCH (20:17)
[2017-07-09 20:49] LABS: APPEARANCE,URINE CLEAR (CLEAR); BILIRUBIN,URINE NEGATIVE (NEGATIVE); GLUCOSE, URINE (UA) NEGATIVE (NEGATIVE); KETONES,URINE NEGATIVE (NEGATIVE); LEUKOCYTE ESTERASE ,URINE MODERATE (NEGATIVE); NITRATE,URINE NEGATIVE (NEGATIVE); OCCULT BLOOD,URINE TRACE (NEGATIVE); PROTEIN,URINE NEGATIVE (NEGATIVE); UROBILINOGEN,URINE 0.2 mg/dL (<=1.0)
[2017-07-09] MEDS: DOCUSATE SODIUM 100 MG CAPSULE PO SCH (21:00)
[2017-07-09 21:28] LABS: CREATINE KINASE MB 1.1 ng/mL (0-5); CREATINE KINASE, TOTAL 46 U/L (26-192)
[2017-07-09 21:30] LABS: BACTERIA,URINE Few /HPF (None Seen); RBC,URINE 0-2 /HPF (0-2); SQUAMOUS EPITHELIAL CELL,UR Rare /LPF (None Seen)
[2017-07-09 23:13] LABS: CALCIUM, TOTAL 8.5 mg/dL (8.8-10.5); CREATININE 1.52 mg/dL (0.60-1.30)
[2017-07-09 23:16] LABS: POTASSIUM 6.1 mmol/L (3.5-5.1)
[2017-07-10 03:57] LABS: GLUCOMETER DEV NAME(LOC) 5S 2N; GLUCOSE,POINT OF CARE 102 MG/DL (70-110)
[2017-07-10 03:58] LABS: GLUCOMETER DEV NAME(LOC) 5S 2N; GLUCOSE,POINT OF CARE 137 MG/DL (70-110)
[2017-07-10] MEDS: SODIUM BICARBONATE 75 MEQ in SODIUM CHLORIDE 0.45% 1,000 ML IV SCH ×2 (07:01→15:31)
[2017-07-10 07:42] VITALS: BP 101/51
[2017-07-10 07:55] LABS: ALBUMIN 2.9 g/dL (3.4-5.0); BILIRUBIN,TOTAL 0.2 mg/dL (0.1-1.0); CALCIUM, TOTAL 8.6 mg/dL (8.8-10.5); CREATININE 1.46 mg/dL (0.60-1.30); MAGNESIUM 2.1 mg/dL (1.80-2.40); PHOSPHORUS 4.9 mg/dL (2.5-4.9); TOTAL PROTEIN, SERUM 7.5 g/dL (6.4-8.2)
[2017-07-10] MEDS: HEPARIN SODIUM,PORCINE 5,000 UNITS/ML VIAL SQ SCH ×2 (08:00)
[2017-07-10 08:05] LABS: POTASSIUM 6.8 mmol/L (3.5-5.1)
[2017-07-10] MEDS ORDERED: DEXTROSE 50%-WATER 25 GM/50 ML SYRINGE IVP ONE ×2 (08:15→19:45)
[2017-07-10] MEDS ORDERED: INSULIN REGULAR, HUMAN 100 UNITS/ML IVP ONE ×2 (08:15→19:45)
[2017-07-10] MEDS ORDERED: SODIUM POLYSTYRENE SULFONATE 15 GM/60 ML SUSPENSION BOTTLE PO ONE (08:15)
[2017-07-10] MEDS ORDERED: CALCIUM GLUCONATE 100 MG/ML 10 ML IVP ONE ×2 (08:15→19:45)
[2017-07-10] MEDS: PANTOPRAZOLE SODIUM 40 MG DR TABLET PO SCH (09:00)
[2017-07-10] MEDS: DOCUSATE SODIUM 100 MG CAPSULE PO SCH ×2 (09:00→20:20)
[2017-07-10] MEDS: MULTIVITAMINS WITH MINERALS, THERAPEUTIC TABLET PO SCH (09:00)
[2017-07-10] MEDS: ESTRADIOL 1 MG TABLET PO SCH (09:40)
[2017-07-10] MEDS: MUPIROCIN CALCIUM 2% 22 GM OINTMENT NASAL SCH ×2 (09:40→20:20)
[2017-07-10] MEDS: CEPHALEXIN MONOHYDRATE 500 MG CAPSULE PO SCH ×4 (09:41→20:15)
[2017-07-10] MEDS: GABAPENTIN 100 MG CAPSULE PO SCH ×3 (09:41→20:15)
[2017-07-10] MEDS: MINERAL OIL/PETROLATUM 120 GM CREAM TP SCH (09:42)
[2017-07-10 11:41] VITALS: BP 120/59
[2017-07-10] MEDS ORDERED: SODIUM POLYSTYRENE SULFONATE 15 GM/60 ML SUSPENSION BOTTLE PR ONE ×2 (12:30→19:45)
[2017-07-10] MEDS: CefTRIAXone 1 GM/DEXTROSE 50 ML IV SCH (15:31)
[2017-07-10 15:55] VITALS: BP 134/78
[2017-07-10 17:03] LABS: GLUCOMETER DEV NAME(LOC) 5N 1M; GLUCOSE,POINT OF CARE 109 MG/DL (70-110)
[2017-07-10 19:26] VITALS: BP 128/65
[2017-07-10] MEDS ORDERED: ALBUTEROL SULFATE 2.5 MG/0.5 ML NEB SOLUTION NEB ONE (19:45)
[2017-07-10 19:49] LABS: CREATININE,URINE RANDOM 12.9 mg/dL (30.0-125.0)
[2017-07-10] MEDS ORDERED: 0.9% SODIUM CHLORIDE 5 ML NEB SOLUTION NEB ONE (22:37)
[2017-07-11] VITALS (7 sets, daily range): BP systolic 110–142; BP diastolic 56–79
[2017-07-11] MEDS: SODIUM BICARBONATE 75 MEQ in SODIUM CHLORIDE 0.45% 1,000 ML IV SCH (01:56)
[2017-07-11 02:58] LABS: GLUCOMETER DEV NAME(LOC) 5S 1L; GLUCOSE,POINT OF CARE 131 MG/DL (70-110)
[2017-07-11 02:58] LABS: GLUCOMETER DEV NAME(LOC) 5S 1L; GLUCOSE,POINT OF CARE 130 MG/DL (70-110)
[2017-07-11 06:52] LABS: GLUCOMETER DEV NAME(LOC) 5S 1L; GLUCOSE,POINT OF CARE 107 MG/DL (70-110)
[2017-07-11 07:03] LABS: ALBUMIN 2.8 g/dL (3.4-5.0); BILIRUBIN,TOTAL 0.2 mg/dL (0.1-1.0); CALCIUM, TOTAL 8.7 mg/dL (8.8-10.5); CREATININE 1.23 mg/dL (0.60-1.30); POTASSIUM 5.7 mmol/L (3.5-5.1); TOTAL PROTEIN, SERUM 7.8 g/dL (6.4-8.2)
[2017-07-11 07:14] LABS: MAGNESIUM 1.7 mg/dL (1.80-2.40); PHOSPHORUS 4.2 mg/dL (2.5-4.9)
[2017-07-11] MEDS: MULTIVITAMINS WITH MINERALS, THERAPEUTIC TABLET PO SCH (08:25)
[2017-07-11] MEDS: CEPHALEXIN MONOHYDRATE 500 MG CAPSULE PO SCH (08:25)
[2017-07-11] MEDS: GABAPENTIN 100 MG CAPSULE PO SCH (08:25)
[2017-07-11] MEDS: ESTRADIOL 1 MG TABLET PO SCH (08:26)
[2017-07-11] MEDS: MINERAL OIL/PETROLATUM 120 GM CREAM TP SCH (08:26)
[2017-07-11] MEDS: MUPIROCIN CALCIUM 2% 22 GM OINTMENT NASAL SCH ×2 (08:26→20:40)
[2017-07-11] MEDS: PANTOPRAZOLE SODIUM 40 MG DR TABLET PO SCH (08:32)
[2017-07-11] MEDS: DOCUSATE SODIUM 100 MG CAPSULE PO SCH ×2 (08:32→20:40)
[2017-07-11] MEDS ORDERED: MAGNESIUM SULFATE 3 GM in DEXTROSE 5%-WATER 100 ML IV ONE (11:00)
[2017-07-11] MEDS ORDERED: SODIUM POLYSTYRENE SULFONATE 15 GM/60 ML SUSPENSION BOTTLE PO ONE (12:00)
[2017-07-11] MEDS: CefTRIAXone 1 GM/DEXTROSE 50 ML IV SCH (15:55)
[2017-07-11 19:02] LABS: GLUCOMETER DEV NAME(LOC) 5S 2N; GLUCOSE,POINT OF CARE 140 MG/DL (70-110)
[2017-07-11] MEDS: INSULIN ASPART 100 UNITS/ML SQ PRN (20:38)
[2017-07-12 05:15] VITALS: BP 131/72
[2017-07-12 07:11] LABS: BILIRUBIN,TOTAL 0.2 mg/dL (0.1-1.0); CALCIUM, TOTAL 8.8 mg/dL (8.8-10.5); CREATININE 1.18 mg/dL (0.60-1.30); MAGNESIUM 2.1 mg/dL (1.80-2.40); PHOSPHORUS 4.6 mg/dL (2.5-4.9); POTASSIUM 5.3 mmol/L (3.5-5.1); TOTAL PROTEIN, SERUM 8.2 g/dL (6.4-8.2)
[2017-07-12] MEDS: MULTIVITAMINS WITH MINERALS, THERAPEUTIC TABLET PO SCH (09:00)
[2017-07-12] MEDS: MUPIROCIN CALCIUM 2% 22 GM OINTMENT NASAL SCH ×2 (09:00→20:56)
[2017-07-12] MEDS: DOCUSATE SODIUM 100 MG CAPSULE PO SCH ×2 (09:00→20:57)
[2017-07-12] MEDS: PANTOPRAZOLE SODIUM 40 MG DR TABLET PO SCH (09:00)
[2017-07-12] MEDS: MINERAL OIL/PETROLATUM 120 GM CREAM TP SCH (09:22)
[2017-07-12] MEDS: CITALOPRAM HYDROBROMIDE 20 MG TABLET PO SCH (09:23)
[2017-07-12] MEDS: ESTRADIOL 1 MG TABLET PO SCH (09:23)
[2017-07-12 11:22] VITALS: BP 153/71
[2017-07-12 15:16] VITALS: BP 135/63
[2017-07-12 20:29] VITALS: BP 148/73
[2017-07-12 23:55] VITALS: BP 140/75
[2017-07-13 07:56] VITALS: BP 135/76
[2017-07-13 08:04] LABS: ALBUMIN 3.2 g/dL (3.4-5.0); BILIRUBIN,TOTAL 0.2 mg/dL (0.1-1.0); CALCIUM, TOTAL 8.9 mg/dL (8.8-10.5); CREATININE 1.19 mg/dL (0.60-1.30); POTASSIUM 5.1 mmol/L (3.5-5.1); TOTAL PROTEIN, SERUM 8.6 g/dL (6.4-8.2)
[2017-07-13] MEDS: PANTOPRAZOLE SODIUM 40 MG DR TABLET PO SCH (08:36)
[2017-07-13] MEDS: DOCUSATE SODIUM 100 MG CAPSULE PO SCH (08:36)
[2017-07-13] MEDS: MUPIROCIN CALCIUM 2% 22 GM OINTMENT NASAL SCH (08:36)
[2017-07-13] MEDS: MULTIVITAMINS WITH MINERALS, THERAPEUTIC TABLET PO SCH (08:36)
[2017-07-13] MEDS: ESTRADIOL 1 MG TABLET PO SCH (08:36)
[2017-07-13] MEDS: CITALOPRAM HYDROBROMIDE 20 MG TABLET PO SCH (08:36)
[2017-07-13] MEDS: MINERAL OIL/PETROLATUM 120 GM CREAM TP SCH (08:37)
[2017-07-13 11:49] VITALS: BP 157/69
[2017-07-13] MEDS: INSULIN ASPART 100 UNITS/ML SQ PRN (12:20)
[2017-07-13 14:23] LABS: GLUCOMETER DEV NAME(LOC) 5S 2N; GLUCOSE,POINT OF CARE 140 MG/DL (70-110)
[2017-07-13 14:23] LABS: GLUCOMETER DEV NAME(LOC) 5S 2N; GLUCOSE,POINT OF CARE 161 MG/DL (70-110)
[2017-07-13 14:23] LABS: GLUCOMETER DEV NAME(LOC) 5S 2N; GLUCOSE,POINT OF CARE 126 MG/DL (70-110)
[2017-07-13 14:27] LABS: GLUCOMETER DEV NAME(LOC) 5S 2N; GLUCOSE,POINT OF CARE 106 MG/DL (70-110)
[2017-07-13 14:27] LABS: GLUCOMETER DEV NAME(LOC) 5S 2N; GLUCOSE,POINT OF CARE 157 MG/DL (70-110)
[2017-07-13 15:35] VITALS: BP 151/78
[2017-07-15 19:49] LABS: GLUCOMETER DEV NAME(LOC) 5S 1L; GLUCOSE,POINT OF CARE 128 MG/DL (70-110)
[2017-07-15 19:49] LABS: GLUCOMETER DEV NAME(LOC) 5S 1L; GLUCOSE,POINT OF CARE 111 MG/DL (70-110)
[2017-07-15 19:49] LABS: GLUCOMETER DEV NAME(LOC) 5S 1L; GLUCOSE,POINT OF CARE 136 MG/DL (70-110)
== END 2017-07-13 17:35 | disposition home or self-care (01) | DRG 683 ==
LOC: 5S 20:50
PROVIDERS: ADMIT Internal Medicine; ATTEND Internal Medicine
DX: N17.9 Acute kidney failure, unspecified (principal); A04.72 Enterocolitis due to Clostridium difficile, not specified as recurrent; E11.42 Type 2 diabetes mellitus with diabetic polyneuropathy; E44.0 Moderate protein-calorie malnutrition; E87.5 Hyperkalemia; L03.115 Cellulitis of right lower limb; F25.1 Schizoaffective disorder, depressive type; R45.851 Suicidal ideations; N39.0 Urinary tract infection, site not specified; L03.116 Cellulitis of left lower limb; B96.89 Other specified bacterial agents as the cause of diseases classified elsewhere; D64.9 Anemia, unspecified; I10 Essential (primary) hypertension; Z79.84 Long term (current) use of oral hypoglycemic drugs; Z79.899 Other long term (current) drug therapy; Z59.0 Homelessness
CPT/HCPCS: 76770; 82570; 82962; 83735; 84100; 84132; 84300; 84540; 87086; 87324; 87449; 94640; 97116; 97161; 97530; J0610; J0696; J1644; J1815; J3475; J3490; J7030; J7060